=== PATIENT | female | born 1985 | race Caucasian/White ===

== ENCOUNTER 2018-01-30 08:35 | Emergency (ER) | payer SELFPAY ==
[~2018-01-30] VITALS: Ht 172.7 cm; Wt 104.3 kg
--- NOTE | 2018-01-30 08:46 | PHYS DOC ---
Past Medical History Past Medical History: No Pertinent History Adult General Chief Complaint Chief Complaint: LOWER BACK PAIN OR INJURY HPI HPI Patient is a 32 year old female who brought in by EMS because of low back pain. Patient states she had low back pain for the last 3 weeks after she felt a pop in her back as a constant pain with radiation to right thigh and seen by chiropractor and took ibuprofen without improvement of pain. Patient complaining of severe low back pain since this morning and states she was not able to get out of the bed and complaining of numbness of right leg. Patient rated her pain 10 over 10 and had 1 episode of vomiting inside of the ambulance. Patient had sublingual Zofran without any pain medication by EMS because of lack of IV line. Patient denies abdominal pain, fever and chills, urinary symptom, . Review of Systems Review of Systems Constitutional: Denies fever or chills [] Eyes: Denies change in visual acuity, redness, or eye pain [] HENT: Denies nasal congestion or sore throat [] Respiratory: Denies cough or shortness of breath [] Cardiovascular: No additional information not addressed in HPI [] GI: Denies abdominal pain, nausea, vomiting, bloody stools or diarrhea [] : Denies dysuria or hematuria [] Musculoskeletal: Reports back pain Integument: Denies rash or skin lesions [] Neurologic: Denies headache, focal weakness or sensory changes [] Endocrine: Denies polyuria or polydipsia [] All other systems were reviewed and found to be within normal limits, except as documented in this note. Current Medications Current Medications Current Medications Medications (Trade) Dose Ordered Sig/[facility] Start Time Stop Time Status Last Admin Dose Admin Fentanyl Citrate (Fentanyl 2ml Vial) 50 mcg 1X ONCE 01/30/18 09:00 01/30/18 09:01 DC 01/30/18 09:40 50 MCG Ketorolac Tromethamine (Toradol 30mg Vial) 30 mg 1X ONCE 01/30/18 12:30 01/30/18 12:31 UNV Morphine Sulfate (Morphine Sulfate) 4 mg 1X ONCE 01/30/18 09:00 01/30/18 09:00 DC Ondansetron HCl (Zofran) 4 mg 1X ONCE 01/30/18 09:00 01/30/18 09:01 DC 01/30/18 09:41 4 MG Allergies Allergies Allergies Coded Allergies Type Severity Reaction Last Updated Verified No Known Drug Allergies 01/30/18 No Physical Exam Physical Exam Constitutional: Well developed, well nourished, moderate distress, non-toxic appearance. [] HENT: Normocephalic, atraumatic Eyes: PERRLA, EOMI, conjunctiva normal, no discharge. [] Neck: Normal range of motion, no tenderness, supple, no stridor. [] Cardiovascular:Heart rate regular rhythm, no murmur [] Lungs & Thorax: Bilateral breath sounds clear to auscultation [] Abdomen: Bowel sounds normal, soft, no tenderness, no masses, no pulsatile masses. [] Skin: Warm, dry, no erythema, no rash. [] Back: No midline tenderness, right paraspinal tenderness and limited range of motion of lumbar spine because of pain no CVA tenderness. [] Extremities: No tenderness, no cyanosis, no clubbing, ROM intact, no edema. [] Neurologic: Alert and oriented X 3, normal motor function, normal sensory function, no focal deficits noted. [] Psychologic: Affect anxious, judgement normal, mood normal. [] Current Patient Data Vital Signs Vital Signs Date Time Temp Pulse Resp B/P (MAP) Pulse Ox O2 Delivery O2 Flow Rate FiO2 01/30/18 09:40 20 100 Room Air 01/30/18 08:45 98.1 61 130/83 (99) 98.1 Lab Values Laboratory Tests Test 01/30/18 11:03 01/30/18 11:27 Urine Collection Type Unknown Urine Color Yellow Urine Clarity Clear Urine pH 8.0 Urine Specific [place] 1.025 Urine Protein Negative mg/dL (NEG-TRACE) Urine Glucose (UA) Negative mg/dL (NEG) Urine Ketones (Stick) 40 mg/dL (NEG) Urine Blood Negative (NEG) Urine Nitrite Negative (NEG) Urine Bilirubin Negative (NEG) Urine Urobilinogen Dipstick 0.2 mg/dL (0.2 mg/dL) Urine Leukocyte Esterase Moderate (NEG) Urine RBC 0 /HPF (0-2) Urine WBC 11-20 /HPF (0-4) Urine Squamous Epithelial Cells Mod /LPF Urine Bacteria Few /HPF (0-FEW) Urine Mucus Slight /LPF White Blood Count 14.3 x10^3/uL (4.0-11.0) H Red Blood Count 4.55 x10^6/uL (3.50-5.40) Hemoglobin 14.3 g/dL (12.0-15.5) Hematocrit 40.2 % (36.0-47.0) Mean Corpuscular Volume 88 fL (79-100) Mean Corpuscular Hemoglobin 32 pg (25-35) Mean Corpuscular Hemoglobin Concent 36 g/dL (31-37) Red Cell Distribution Width 12.9 % (11.5-14.5) Platelet Count 348 x10^3/uL (140-400) Neutrophils (%) (Auto) 72 % (31-73) Lymphocytes (%) (Auto) 18 % (24-48) L Monocytes (%) (Auto) 7 % (0-9) Eosinophils (%) (Auto) 2 % (0-3) Basophils (%) (Auto) 0 % (0-3) Neutrophils # (Auto) 10.3 x10^3uL (1.8-7.7) H Lymphocytes # (Auto) 2.6 x10^3/uL (1.0-4.8) Monocytes # (Auto) 0.9 x10^3/uL (0.0-1.1) Eosinophils # (Auto) 0.3 x10^3/uL (0.0-0.7) Basophils # (Auto) 0.0 x10^3/uL (0.0-0.2) Sodium Level 142 mmol/L (136-145) Potassium Level 3.6 mmol/L (3.5-5.1) Chloride Level 104 mmol/L (98-107) Carbon Dioxide Level 22 mmol/L (21-32) Anion Gap 16 (6-14) H Blood Urea Nitrogen 12 mg/dL (7-20) Creatinine 0.7 mg/dL (0.6-1.0) Estimated GFR (Cockcroft-Gault) 95.8 BUN/Creatinine Ratio 17 (6-20) Glucose Level 95 mg/dL (70-99) Calcium Level 8.9 mg/dL (8.5-10.1) Total Bilirubin 0.9 mg/dL (0.2-1.0) Aspartate Amino Transferase (AST) 22 U/L (15-37) Alanine Aminotransferase (ALT) 24 U/L (14-59) Alkaline Phosphatase 68 U/L (46-116) Total Protein 7.8 g/dL (6.4-8.2) Albumin 4.0 g/dL (3.4-5.0) Albumin/Globulin Ratio 1.1 (1.0-1.7) Laboratory Tests 01/30/18 11:27 Laboratory Tests 01/30/18 11:27 EKG EKG [] Radiology/Procedures Radiology/Procedures [facility] [address] [place] [address] IMAGING REPORT Signed PATIENT: ALONSO NORIEGA ACCOUNT: [id number] : 1985 LOCATION: ER AGE: 32 SEX: F EXAM STATUS: REG ER ORD. PHYSICIAN: JACE العراقي MD REASON: severe low back pain since this morning PROCEDURE: CT LUMBAR SPINE WO CONTRAST EXAM: Lumbar spine CT without contrast. HISTORY: Pain. TECHNIQUE: Computed tomographic images of the lumbar spine were obtained without contrast. Multiplanar reformatting was performed. *One or more of the following individualized dose reduction techniques were utilized for this examination: 1. Automated exposure control. 2. Adjustment of the mA and/or kV according to patient size. 3. Use of iterative reconstruction technique. COMPARISON: None. FINDINGS: There is mild lumbar levoscoliosis. There is no listhesis. The vertebral bodies are normal in height. There are few small endplate Schmorl's nodes. There is slight endplate remodeling and disc space narrowing at L5-S1, described in detail below. There is no fracture or suspicious osseous lesion. There is an IUD within the lower uterine segment. There is a 7.3 cm right adnexal cyst, partially excluded from the [id number]. At L1-L2, there is no stenosis. At L2-L3, there is no stenosis At L3-L4, there is no stenosis. At L4-L5, there are shallow left paracentral and right foraminal to extraforaminal disc protrusion superimposed on a disc bulge and endplate remodeling. There is mild to moderate right and mild left foraminal stenosis. There is mild central canal stenosis. At L5-S1, there is a left foraminal to extraforaminal disc osteophyte complex superimposed on a disc bulge and endplate remodeling. There is mild to moderate right and moderate left foraminal stenosis. IMPRESSION: 1. Degenerative change at the lower lumbar levels, resulting in mild to moderate right and mild left foraminal and mild central canal stenosis at L4-L5 and mild to moderate right and moderate left foraminal stenosis at L5-S1. 2. 7.3 cm right adnexal cyst partially excluded from the [id number], likely ovarian in etiology. This can be further assessed with a pelvic sonogram. 3. IUD positioned inferior to expected location, within the lower uterine segment. 4. Mild lumbar scoliosis. Electronically signed by: Sita King MD (01/30/2018 10:38 AM) [place] [id number] DICTATED and SIGNED BY: SITA KING MD DATE: 01/30/18 1022 Course & Med Decision Making Course & Med Decision Making Pertinent Labs and Imaging studies reviewed. (See chart for details) Evaluation of patient in ER showed 32-year-old male patient with complaining of low back pain for 2 weeks that getting worse today. Patient had limited range of motion and was very anxious in ER. Patient treated with fentanyl and felt better. CT showed several spinal stenosis in lumbar spine and right ovarian cyst confirmed with ultrasound as a 7.6 cm simple cyst. Labs showed UTI. Patient psychiatric to follow with her primary care physician regarding low back pain and [facility] regarding ovarian cyst and apply ice on her back. Dragon Disclaimer Dragon Disclaimer This electronic medical record was generated, in whole or in part, using a voice recognition dictation system. Departure Departure Impression: Primary Impression: Sciatica Additional Impressions: Spinal stenosis Acute lumbar back pain Ovarian cyst Urinary tract infection Disposition: 01 HOME, SELF-CARE (at 1207) Condition: IMPROVED Patient Instructions: Ovarian Cyst, Sciatica, Spinal Stenosis Additional Instructions: Follow-up with your primary care physician in 3-5 days Return to ER if not getting better Apply ice on the affected area Follow-up with your [facility] in 2 or 3 days regarding ovarian cyst Scripts Ciprofloxacin Hcl (CIPRO) 250 Mg Tablet 1 TAB PO BID, #14 TAB Prov: JACE العراقي MD 01/30/18 Naproxen (NAPROSYN) 500 Mg Tablet 1 TAB PO BID, #20 TAB Prov: JACE العراقي MD 01/30/18 Tramadol Hcl (ULTRAM) 50 Mg Tablet 50 MG PO Q6HRS PRN for PAIN, #20 TAB 0 Refills Prov: JACE العراقي MD 01/30/18 Cyclobenzaprine Hcl (CYCLOBENZAPRINE HCL) 10 Mg Tablet 1 TAB PO TID, #30 TAB Prov: JACE العراقي MD 01/30/18 Methylprednisolone (MEDROL) 4 Mg Tab.ds.pk 1 PKG PO UD, #1 PKG Prov: JACE العراقي MD 01/30/18 Problem Qualifiers JACE العراقي MD Jan 30, 2018 08:46
[2018-01-30] MEDS ORDERED: ONDANSETRON PF 4 MG/2 ML VIAL. IV ONE (09:00)
[2018-01-30] MEDS ORDERED: MORPHINE SULFATE 4 MG/ML VIAL. IV ONE (09:00)
[2018-01-30] MEDS ORDERED: fentaNYL PF VIAL 100 MCG/2 ML VIAL IV ONE (09:00)
--- NOTE | 2018-01-30 10:42 | RAD ---
EXAM: Lumbar spine CT without contrast. HISTORY: Pain. TECHNIQUE: Computed tomographic images of the lumbar spine were obtained without contrast. Multiplanar reformatting was performed. *One or more of the following individualized dose reduction techniques were utilized for this examination: 1. Automated exposure control. 2. Adjustment of the mA and/or kV according to patient size. 3. Use of iterative reconstruction technique. COMPARISON: None. FINDINGS: There is mild lumbar levoscoliosis. There is no listhesis. The vertebral bodies are normal in height. There are few small endplate Schmorl's nodes. There is slight endplate remodeling and disc space narrowing at L5-S1, described in detail below. There is no fracture or suspicious osseous lesion. There is an IUD within the lower uterine segment. There is a 7.3 cm right adnexal cyst, partially excluded from the [id number]. At L1-L2, there is no stenosis. At L2-L3, there is no stenosis At L3-L4, there is no stenosis. At L4-L5, there are shallow left paracentral and right foraminal to extraforaminal disc protrusion superimposed on a disc bulge and endplate remodeling. There is mild to moderate right and mild left foraminal stenosis. There is mild central canal stenosis. At L5-S1, there is a left foraminal to extraforaminal disc osteophyte complex superimposed on a disc bulge and endplate remodeling. There is mild to moderate right and moderate left foraminal stenosis. IMPRESSION: 1. Degenerative change at the lower lumbar levels, resulting in mild to moderate right and mild left foraminal and mild central canal stenosis at L4-L5 and mild to moderate right and moderate left foraminal stenosis at L5-S1. 2. 7.3 cm right adnexal cyst partially excluded from the [id number], likely ovarian in etiology. This can be further assessed with a pelvic sonogram. 3. IUD positioned inferior to expected location, within the lower uterine segment. 4. Mild lumbar scoliosis. Electronically signed by: Sita King MD (01/30/2018 10:38 AM) [place] [id number]
[2018-01-30 11:12] LABS: BILIRUBIN,URINE NEGATIVE (NEG); CLARITY,URINE CLEAR; COLOR,URINE YELLOW; NITRITE,URINE NEGATIVE (NEG); PROTEIN,URINE NEGATIVE (NEG-TRACE); UROBILINOGEN,URINE 0.2 mg/dL (0.2 mg/dL)
[2018-01-30 11:24] LABS: SQUAMOUS EPITHELIAL CELL,UR MOD /LPF
[2018-01-30 11:28] LABS: BACTERIA,URINE FEW /HPF (0-FEW); RBC,URINE 0 /HPF (0-2)
[2018-01-30 11:42] LABS: BASO % 0 % (0-3); EOS # 0.3 x10^3/uL (0.0-0.7); EOS % 2 % (0-3); HEMATOCRIT 40.2 % (36.0-47.0); HEMOGLOBIN 14.3 g/dL (12.0-15.5); LYMPH # 2.6 x10^3/uL (1.0-4.8); LYMPH % 18 % (24-48); MEAN CORPUSCULAR HEMOGLOBIN 32 pg (25-35); MEAN CORPUSCULAR HGB CONC 36 g/dL (31-37); MEAN CORPUSCULAR VOLUME 88 fL (79-100); MONO # 0.9 x10^3/uL (0.0-1.1); MONO % 7 % (0-9); NEUT # 10.3 x10^3uL (1.8-7.7); NEUT % 72 % (31-73); PLATELET COUNT 348 x10^3/uL (140-400); RED BLOOD COUNT 4.55 x10^6/uL (3.50-5.40); RED CELL DISTRIBUTION WIDTH 12.9 % (11.5-14.5); WHITE BLOOD COUNT 14.3 x10^3/uL (4.0-11.0)
[2018-01-30 11:50] LABS: CALCIUM 8.9 mg/dL (8.5-10.1); CREATININE 0.7 mg/dL (0.6-1.0); GFR 95.8; POTASSIUM 3.6 mmol/L (3.5-5.1)
[2018-01-30 11:56] LABS: ALBUMIN/GLOBULIN RATIO 1.1 (1.0-1.7); TOTAL BILIRUBIN 0.9 mg/dL (0.2-1.0); TOTAL PROTEIN 7.8 g/dL (6.4-8.2)
[2018-01-30] MEDS ORDERED: TRAM-48 PO (12:11)
[2018-01-30] MEDS ORDERED: NAPR-683 PO (12:11)
[2018-01-30] MEDS ORDERED: CYCL10TA2 PO (12:11)
[2018-01-30] MEDS ORDERED: METH4TAB2 PO (12:11)
[2018-01-30] MEDS ORDERED: CIPR250T30 PO (12:17)
[2018-01-30] MEDS ORDERED: KETOROLAC 30 MG/ML VIAL. IV ONE (12:30)
[2018-01-30 12:35] VITALS: BP 138/82
--- NOTE | 2018-01-30 12:41 | RAD ---
EXAM: Pelvic sonogram. HISTORY: Pain. Ovarian cyst on CT. TECHNIQUE: . Transabdominal and transvaginal sonographic imaging of the pelvis was performed. COMPARISON: CT obtained on the same date. FINDINGS: The uterus measures 9.5 x 6.6 x 5.3 cm. The endometrial stripe measures 6 mm in thickness. There is a 6.3 cm right ovarian cyst with adjacent 2.0 cm cyst or single 7.6 cm right ovarian cyst with internal septation. There is normal flow within the surrounding ovarian parenchyma. The left ovary is normal in size. There are small left ovarian follicles in a predominantly peripheral distribution. The bladder is unremarkable. There is an intrauterine contraceptive device within the lower uterine segment and endocervical canal. There is no pelvic free fluid. IMPRESSION: 1. 6.3 cm and 2.0 cm right ovarian cysts or single 7.6 cm right ovarian cyst with internal septation. Sonographic follow-up can be performed to confirm resolution. 2. IUD positioned inferior to expected location, within the lower uterine segment and endocervical canal. This decreases the efficacy of this device. 3. Small left ovarian follicles any predominant peripheral distribution. This is not clearly within limits to suggest polycystic ovary syndrome. Electronically signed by: Sita King MD (01/30/2018 12:38 PM) [facility]
== END 2018-01-30 12:40 | disposition home or self-care (01) ==
LOC: ER 08:35
DX: M48.061 Spinal stenosis, lumbar region without neurogenic claudication (principal); M54.41 Lumbago with sciatica, right side; N83.201 Unspecified ovarian cyst, right side; N39.0 Urinary tract infection, site not specified; R20.0 Anesthesia of skin
CPT/HCPCS: 36415; 72131; 76830; 76856; 80053; 81001; 85025; 87086; 96374; 96375; 99285; J1885; J2405; J3010